=== PATIENT | male | born 1980 | race Caucasian/White ===

== ENCOUNTER 2024-03-13 14:30 | Emergency (ER) | payer BC, SELFPAY ==
[2024-03-13 14:42] VITALS: BP 160/89
--- NOTE | 2024-03-13 17:11 | ED.GENMED ---
History of Present Illness
General
Chief Complaint: Eye Problems
Source: patient
Time Seen by Provider: 03/13/24 16:37
History of Present Illness
History of Present Illness:
43-year-old male presents to the emergency room complaining of vision loss in his right eye. Symptoms began around 9 AM. Patient states he woke up this morning and his vision was perfectly fine. At about 9 or 930 he noticed a U-shaped area of
vision loss of the right eye. When he looks with 2 eyes he has blurred great vision on the right side. When he occludes his right eye his vision appears normal. When he occludes his left eye he notes a U-shaped area of his lateral visual field
which is absent. The remainder of the visual field is normal. Patient denies any pain in his right eye. He denies any headache. He further denies any chest pain or neck pain. Of note the patient has a history of a thoracic abdominal aneurysm.
He states it was diagnosed here about 2 years ago. He has had interval imaging at an outside institution which showed no growth of the aneurysm. Patient denies any other areas of weakness, numbness.
Past History
Past History
ED Past Medical History: None
ED Past Surgical History: Orthopedic
Phy Exam
Physical Exam
Physical Exam:
General: Awake, Alert, Oriented X3. No acute distress.
Vitals: unremarkable
Head: Atraumatic
Eyes: Pupils equal, EOMI, anterior chamber appears normal
Throat: Airway intact, no exudates
Neck: Trachea midline
Lungs: Clear and equal b/l
Heart: Regular rate, 2/6 systolic murmurs
Abd: Soft, Nontender, No pulsatile mass
Neuro: Cranial nerves intact, muscle strength equal bilaterally, cerebellar exam normal
Skin: Warm, dry, no rash
Extremities: pulses equal b/l, no edema
Course
Orders/Labs/Results
Orders:
Orders
03/13/24 14:47
CT Head W/o Iv Contrast Stat
Comment:
Reason For Exam: partial R eye blindness x 5 hours
03/13/24 17:02
Electrocardiogram (*1) Urgent
Reason for Study: TIA/Stroke
EKG- Treatment ONCE
03/13/24 17:09
CT Angio Neck W/Wo Iv Contrast [CT Neck Angio W/wo Iv Contrast] Urgent
Comment:
Reason For Exam: partial right retinal artery occlusion, hx of TAA
03/13/24 17:10
CT Chest Angio W/wo Iv Contras Urgent
Comment:
Reason For Exam: partial right retinal artery occlusion, hx of TAA
03/13/24 17:30
Basic Metabolic Panel Urgent
Complete Blood Count/With Diff Urgent
03/13/24 21:05
Aspirin Chewable [Low Strength Aspirin] 324 mg PO NOW STA
Abnormal Lab Results
03/13/24
17:30
Eosinophils % 8.7 H %
(0-6)
03/13/24 17:30
03/13/24 17:30
Vital Signs
Initial and Last Documented VS:
Initial Vital Signs
Temp Pulse Resp BP Pulse Ox
98.1 F 82 18 160/89 98
03/13/24 14:42 03/13/24 14:42 03/13/24 14:42 03/13/24 14:42 03/13/24 14:42
Last Documented Vital Signs
Temp Pulse Resp BP Pulse Ox
98.1 F 79 16 130/56 93
03/13/24 14:42 03/13/24 17:32 03/13/24 17:32 03/13/24 20:36 03/13/24 20:45
MDM/Problems Addressed
Differential Diagnosis Includes:
Branch retinal artery occlusion, retinal detachment, thoracic aortic dissection, symptomatic thoracic aortic aneurysm, intracranial mass
MDM/Problems Addressed:
Patient presents with partial visual field loss. Exam is otherwise negative. CT of the head shows no acute abnormalities. CT angiogram of the chest shows minimal to no change of the thoracic aneurysm. There is no evidence of dissection. CT
angio of the neck is essentially normal. Discussed patient's presentation with ophthalmology on-call. She raises the possibility of a retinal detachment also giving similar symptoms. Upon requestioning the patient denies any floaters or flashers.
However he does say he sometimes has ocular migraines. This certainly could be the cause for his symptomatology today. Because the patient has normal imaging and no other neurologic findings I do not believe the patient would benefit from
hospitalization but would rather benefit from ophthalmology follow-up tomorrow. Dr. Turner will have her office reach out to the patient in the morning for exact follow-up instructions
*Radiology
Radiology exam reviewed: radiology read reviewed
*Pulse Oximetry
Patient hypoxic: no
*EKG
Interpreted by ED Provider?: Yes
Heart Rate: 68
Rate: normal
Rhythm: sinus
QRS Pattern: normal QRS
Ischemia: no ischemia
*Glass Furnace Operator Interpretation
Rate: normal
Interpretation: normal
Rhythm: sinus
*Critical Care Note
Total Time (30-74mins, 75-104mins- exclusive of procedures): Not Applicable
ED Attending Note
-
Portions of this chart may have been created with voice recognition software.� Occasional wrong word or��sound alike� substitutions may have occurred due to the inherent limitations of voice recognition software.
Discharge Plan
Departure
Patient Disposition: Home (Routine Discharge)
Date of Disposition: 03/13/24
Time of Disposition: 21:03
Patient with high blood pressure during this ER visit?: No
Condition: Good
Discharge Problem:
Visual loss
Prescriptions:
No Action
amlodipine [Norvasc] 5 mg tablet
5 mg PO DAILY Qty: 30 0RF
Referrals:
Sadaf Turner MD [Active] -
NONE,* [Family Provider] -
Activity Restrictions/Additional Instructions:
You should receive a call from the Dr. Turner's office in the morning to arrange follow up with them sometime tomorrow. Also, call your night order selector first thing Saturday morning to arrange follow up and explain we recommend you have an
echocardiogram.
Interventions
Interventions:
*General Assessment Last Done: 03/13/24 17:23
*Neglect/Abuse Screening Last Done: 03/13/24 14:42
ED- Fall Risk Assessment Last Done: 03/13/24 17:45
*ED COVID-19 Vaccine History Last Done: 03/13/24 17:23
*Nursing Disposition Last Done: 03/13/24 21:29
Discharge Date and Time
Discharge Date/Time: 03/13/24 21:29
Print Language: TANZANIAN
[2024-03-13 17:22] VITALS: BMI 36.3
[2024-03-13 17:31] VITALS: BP 163/76
[2024-03-13 17:32] VITALS: BP 163/76
[2024-03-13 17:43] LABS: % Basophils 0.5 % (0-2); % Eosinophils 8.7 % (0-6); % Immature Granulocytes 0.2 % (0-0.5); % Lymphocytes 33.3 % (20.5-51.1); % Monocytes 7.2 % (1.7-9.3); % Neutrophils 50.1 % (42.2-75.2); Absolute Eosinophils 0.5 10^3/uL (0-0.7); Absolute Monocytes 0.4 10^3/uL (0.1-0.6); Absolute Neutrophils 2.9 10^3/uL (1.4-6.5); Hematocrit 41.6 % (39.0-52.0); Hemoglobin 14.8 g/dL (13.0-18.0); Mean Corp Hgb Conc. 35.6 g/dL (33.0-37.0); Mean Corpuscular Hgb 29.8 pg (27.0-31.0); Mean Corpuscular Volume 83.9 fL (80.0-94.0); Mean Platelet Volume 9.9 fL (7.4-10.4); Nucleated Red Blood Cells % 0 % (-); Platelet Count 210 10^3/uL (130-400); Red Blood Cell Count 4.96 10^6/uL (4.70-6.10); Red Cell Dist. Width 12.5 % (11.5-14.5); White Blood Cell Count 5.9 10^3/uL (4.8-10.8)
[2024-03-13 17:57] LABS: Blood Urea Nitrogen 17 mg/dl (9-20); Calcium 9.7 mg/dl (8.4-10.2); Carbon Dioxide 28 mmol/L (22-30); Chloride 102 mmol/L (98-107); Estimated Creatinine Clearance 90 ml/min; Glucose 97 mg/dl (70-99); Potassium 4.1 mmol/L (3.5-5.1); Sodium 141 mmol/L (135-145); eGFR > 60.00
[2024-03-13 20:36] VITALS: BP 130/56
[2024-03-13] MEDS: LOW STRENGTH ASPIRIN 324 MG PO (21:14)
== END 2024-03-13 21:29 | disposition home or self-care (01) ==
LOC: EMR 14:30
PROVIDERS: EMERGENCY PHYSICIAN Emergency Medicine
DX: H54.61 Unqualified visual loss, right eye, normal vision left eye (principal); I71.20 Thoracic aortic aneurysm, without rupture, unspecified
CPT/HCPCS: 99285; 70450; 70498; 71275; 80048; 85025; 93005; Q9967

== ENCOUNTER 2024-03-14 16:00 | Inpatient (IN) | payer BC, SELFPAY ==
[2024-03-14] VITALS (11 sets, daily range): BP systolic 121–156; BP diastolic 71–92; BMI 32.5; BMI 34.8
--- NOTE | 2024-03-14 11:32 | EDRN ---
Pt states he sees sparks in perphery of R eye visual field and sees a little bit in lower L corner. 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 Pt was seen
in ER and pt was discharged to follow up w/ophthmoloist Dr. Neftaly Rivers referred to Dr. Butts's practice. Pt was advised to return to ER for more blood work.
[2024-03-14 12:48] LABS: HDL Cholesterol 44 mg/dl; LDL Cholesterol, Calculated 116 mg/dl; Total Cholesterol 210 mg/dl (50-199); Triglyceride 254 mg/dl (10-149); Very Low Density Lipoprotein 50 mg/dl (0-30)
[2024-03-14 12:49] LABS: C-Reactive Protein < 5.00 mg/L (0.0-10.00); INR 1.03; PT 13.3 Sec (11.4-14.6)
[2024-03-14 12:50] LABS: APTT 30.7 Sec (23.4-35.0)
[2024-03-14 13:09] LABS: Erythrocyte Sed Rate 9 mm/hour (0-20)
--- NOTE | 2024-03-14 14:03 | ED.GENMED ---
History of Present Illness
General
Chief Complaint: Eye Problems
Source: patient and spouse
Time Seen by Provider: 03/14/24 11:41
History of Present Illness
History of Present Illness:
43-year-old male who presents back from ophthalmology. Patient was seen here in emergency department due to vision loss. Seen by ophthalmology who sent him back for further workup. They did diagnose a retinal branch occlusion. The patient states
his symptoms have not changed. No headache. No motor weakness.
Past History
Past History
ED Past Medical History: Other (Ocular migraines, thoracic aneurysm)
ED Past Surgical History: Orthopedic
Phy Exam
Physical Exam
Physical Exam:
CONSTITUTIONAL Patient alert and oriented to person, place and time. Well-appearing. Vital signs reviewed.
HEAD atraumatic, normocephalic.
EYES eyelids normal to inspection, Pupils equally round and reactive to light, Extraocular muscles intact, Conjunctiva normal, Sclera normal.
NECK normal range of motion, Trachea midline, no jugular venous distention.
RESPIRATORY CHEST No respiratory distress noted, Chest expansion equal,
ABDOMEN abdomen nontender, Bowel sounds normal. No distention.
BACK normal inspection, no obvious deformities
UPPER EXTREMITY range of motion normal, Motor strength normal, no cyanosis, no edema.
LOWER EXTREMITY range of motion normal, Motor strength normal, no cyanosis, no edema.
NEURO Speech normal, No focal motor deficits, [place] coma scale 15, Memory normal, Cranial Nerves intact to screening exam.
SKIN skin warm, dry, and normal in color.
PSYCHIATRIC patient oriented to person place and time, Normal affect.
Course
Orders/Labs/Results
Orders:
Orders
03/14/24 Lunch
Cholesterol Lowering
At Your Request: Full Participation
Cholesterol Lowering: Sodium, 2 Gram
03/14/24 12:20
DACIA, IgG Reflex to HEp-2 [S] Urgent
C-Reactive Protein Urgent
Cardiovascular Evaluation Urgent
Erythrocyte Sed Rate Urgent
FTA-ABS/T. pallidum, IgG Serum [S] Urgent
PTT Urgent
Prothrombin Time Urgent
Rheumatoid Agglutinin Urgent
03/14/24 14:26
Aspirin Chewable [Low Strength Aspirin] 81 mg PO NOW STA
03/14/24 15:20
Admit/Transfer Patient As Directed
Co-Sign Provider:
Level of Care: Inpatient admission
Assign to:: Telemetry
Physician / Group: Dr. Cleve Gonzalez
Diagnosis: Right Retinal Artery Occlusion
Reason for Telemetry: Arrhythmia
Date to Stop Telemetry: 03/17/24
Time to Stop Telemetry: 11:00
Reason for Hospitalization: Right Retinal Artery Occlusion
Expected length of stay greater than two midnights?: Yes
ELOS- Estimated Length of Stay in days: 3
I certify the patient meets the requirements for IP care: Yes
PRN Pain Medication Management As Directed
May give lesser potent ordered pain med per pt: Yes
preference::
Protocol:: Medication orders for pain may be administered in a
manner that supports deferring to patient preference
when the pt is:
- Requesting an ordered lesser potent pain medication.
Least to most potent pain medications are defined
as: acetaminophen < NSAID < tramadol < opioids
(morphine, oxycodone, hydromorphone).
- Requesting a lesser dose of the same medication IF
ORDERED.
- Requesting a less intrusive route of administration
if both routes are prescribed by the provider (PO <
IV).
03/14/24 15:22
Code Status As Directed
Resuscitation Status: Full Code
03/14/24 15:30
Basic Metabolic Panel Urgent
03/14/24 18:05
Atorvastatin [Lipitor] 40 mg PO QPM
Bisacodyl [Dulcolax] 10 mg RECTAL [id number] PRN
Docusate W/Senna [Senokot-S] 1 tablet PO BIDPRN PRN
Polyethylene Glycol Powder [Miralax] 17 grams PO DAILYPRN PRN
03/14/24 18:05
Echo W Saline (bubble) Routine
Reason for Study: retinal art clot
CARDIOLOGY CONSULT Routine
Consulting Provider: David Aguirre
Was physician already notified: Yes
Reason for consult: possible cardioembolic disease
Activity As Directed
Activity Level: As Tolerated
Neurological Checks As Directed
Frequency: q8h
Pneumatic Compression Sleeves As Directed
Type: Knee high
Vital Signs As Directed
Frequency: Per unit guidelines
DX Deep Vein Thrombosis Video Routine
03/14/24 20:00
Acetaminophen [Tylenol] 650 mg PO Q4HWA
03/15/24 06:59
Antiphospholipid Antibody [Phospholipid Antibody Panel] IN AM
BMP [Basic Metabolic Panel] IN AM
Hemoglobin A1c [Glycohemoglobin (HgbA1c)] IN AM
03/15/24 08:00
Aspirin Chewable [Low Strength Aspirin] 81 mg PO DAILY
03/16/24 06:00
BMP [Basic Metabolic Panel] IN AM
03/17/24 06:00
BMP [Basic Metabolic Panel] IN AM
03/17/24 11:00
DC Protocol for Telemetry ONCE
Abnormal Lab Results
03/14/24 03/14/24
12:20 15:30
Glucose 103 H mg/dl
(70-99)
Triglycerides 254 H mg/dl
(10-149)
Total Cholesterol 210 H mg/dl
(50-199)
VLDL Cholesterol, Calc 50 H mg/dl
(0-30)
03/14/24 15:30
Vital Signs
Initial and Last Documented VS:
Initial Vital Signs
Temp Pulse Resp BP Pulse Ox
98 F 95 16 156/92 98
03/14/24 11:09 03/14/24 11:09 03/14/24 11:09 03/14/24 11:09 03/14/24 11:09
Last Documented Vital Signs
Temp Pulse Resp BP Pulse Ox
98.2 F 74 18 106/52 94
03/15/24 19:55 03/15/24 19:55 03/15/24 19:55 03/15/24 19:55 03/15/24 19:55
MDM/Problems Addressed
MDM/Problems Addressed:
Visual field loss, arterial retinal branch occlusion
*Pulse Oximetry
Patient hypoxic: no
*Catering Convention Services Manager Interpretation
Rate: normal
Interpretation: normal
Rhythm: sinus
*Critical Care Note
Total Time (30-74mins, 75-104mins- exclusive of procedures): Not Applicable
Data Reviewed
Review of Other/Old Records Reveals: Labs and Radiology Studies
Source: patient and spouse
Patient Management
Discussion with other providers: Hospitalist
Escalation/DeEscalation of care consider admission/obs:
43-year-old male presents with visual field loss. Given the unknown known etiology, admit for MRI and possible echo to look for source of emboli. Recent CT reviewed showing no dissection
ED Attending Note
-
Portions of this chart may have been created with voice recognition software.� Occasional wrong word or��sound alike� substitutions may have occurred due to the inherent limitations of voice recognition software.
Discharge Plan
Departure
Patient Disposition: Admit
Date of Disposition: 03/14/24
Time of Disposition: 14:03
Admit to: Telemetry
Presentation/result/management discussed w/ accepting MD/DO: Hospitalist
Discharge Problem:
Arterial retinal branch occlusion
Interventions
Interventions:
*Risk Screen - Suicide Last Done: 03/14/24 11:09
*General Assessment Last Done: 03/14/24 11:30
*Neglect/Abuse Screening Last Done: 03/14/24 11:09
ED- Fall Risk Assessment Last Done: 03/14/24 11:31
*ED COVID-19 Vaccine History Last Done: 03/14/24 11:30
*Nursing Disposition Last Done: 03/14/24 17:57
Discharge Date and Time
Discharge Date/Time: 03/14/24 17:57
--- NOTE | 2024-03-14 14:32 | EDRN ---
Pt states the L side of his face is feeling different, feeling numb + tingly and also feeling hot and sweaty from anxiousness due to admission here. pt also having pain in L mosque area 3/10 described as pressure.
[2024-03-14] MEDS: LOW STRENGTH ASPIRIN 81 MG PO (14:40)
--- NOTE | 2024-03-14 14:45 | EDRN ---
Dr. Richards (hospitalist resident) in to see pt.
--- NOTE | 2024-03-14 15:33 | EDRN ---
BMP was deemed hemolyzed by lab and just redrawn and sent new tube for ordered BMP labwork at this time.
--- NOTE | 2024-03-14 15:51 | W.PN.UPDATE ---
Update Note
Progress Note Update
I personally performed a history and physical exam of the patient and discussed management with the resident. I reviewed the resident's note and agree with the documented findings and plan of care HPI/CC.
Patient is a 43-year-old male with past medical history of former smoker, hypertension?, Optimized was sent from ophthalmology office after being diagnosed for right eye branch retinal artery occlusion. Patient noticed to have new horseshoe
scotoma involving temporal visual field and sparing central vision yesterday. Patient does have history of ocular migraine where patient have some floaters/flash and blotchy dark spots followed by some headache which usually resolves. Patient
initially thought this was the case although vision changes did not improve and patient did not have any significant headache and thus came to the ER. In ER patient had CTA chest which showed ascending thoracic aortic aneurysm of 4.7 cm, CTA neck
was showing clean ICA. Patient was sent to ophthalmology office for follow-up with her in office patient was diagnosed to have branch retinal artery occlusion. Patient was recommended to come back to ER for further evaluation for possible
cardioembolism.
Patient denies of having any previous history of VTE, no family history of hypercoagulable disorder/blood clot. Patient has stopped smoking for many years now.
Patient denies episodes of palpitations/chest discomfort/dizziness/syncope. No reported other cardiac issues.
HEENT: No pallor, cyanosis, or jaundice. Throat clear.
NECK: Supple. No JVD.
RESPIRATORY: Lungs clear to auscultation.
CVS: S1, S2 normal. RRR. No murmur, rub or gallop.
ABDOMEN: Soft, non-tender. No distension. BS+/normal.
EXTREMITIES: No peripheral cyanosis or edema.
MACHINE HEEL BUILDER: AOx3. No focal deficits.
CTA neck 03/13
No significant narrowing involving the common carotid, carotid bulbs, or proximal internal carotid arteries bilaterally.
Dominant right vertebral artery with small caliber left vertebral artery. The left vertebral artery terminates as the posterior inferior cerebellar artery.
No evidence for dissection.
CT chest 03/[address] angiographic evidence for thoracic aortic dissection.
Dilation of the ascending aorta, short axis diameter 4.7 cm at the level of the right main pulmonary artery. Continued follow-up is recommended.
There is mild to moderate calcification of the aortic valve. Combined with dilation of the aorta, findings raise concern for bicuspid aortic valve. On reconstructions, valvular calcification is mainly at the junction of the left and right coronary
leaflets, which raises concern for Aries type I bicuspid valve. If not previously evaluated, consider consultation with cardiology.
Mild calcification of the LAD. Please correlate with symptoms of and risk factors for coronary artery disease, with further workup as clinically appropriate.
The lungs appear clear. Fatty infiltration of the visualized liver.
Right eye - branch retinal artery occlusion
- Right eye temporal horse shoe shaped vision loss spraing central vision
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
- CTA neck clear - done in ER yesterday
- Have h/o of ocular migraine - ESR normal - low chance temporal arteritis
- Syphilis ab/RA pending
- TTE with bubble study ordered
- Check anti-phospholipid ab panel. full hypercoagulability workup in hematology office will be required
- Cardio evaluation requested , will help with OP rhythm monitoring
- Start on ASA 81mg/d for now. Per literature review no benefit of anticoagulation was found to have underlying A-fib or other hypercoagulable disorder.
HLD
- TC 210 LDL 116
- Start on Atorvastatin 40mg/qpm
Thoracic art aneurysm
Former smoker
- CT chest report as above
- Will require periodic surveillance with cardiology in office
HTN
- unconfirmed
- maintain on nrovasc
Full code
SCD
Outpatient optometry/ophthalmology recommendations reviewed - see ' emergency department scanned ''
Total time spent : 83 mins
I personally saw and examined the patient.
I have reviewed all diagnostic interpretations and treatment plans as written.
Time includes patient management by me, time spent at the patients bedside, time to review lab and imaging results, discussing patient care, documentation in the medical record, and time spent with the family or caregiver and discussing care plan
with RN/Consultants.
--- NOTE | 2024-03-14 15:56 | HPS.HSE ---
Addendum entered and electronically signed by Cleve Gonzalez MD 03/15/24 14:04:
I personally performed a history and physical exam of the patient and discussed management with the resident. I reviewed the resident's note and agree with the documented findings and plan of care HPI/CC.
Original Note:
Family Physician
-
Family Physician: Carlo Hines
Chief Complaint
-
Sudden Vision Lost on the Right Eye
History of Present Illness
The patient is a 43 year old male with a PMH of aortic aneurysm and ocular migraine presented to ER 2 days ago on 03/13 complaining from sudden loose of her right vision partially. The case was discussed with ophthalmology at that time by ER
physician and He was obtained Ct head, CT chest/ neck angio studies. Head CT and CT Neck Angio results were unremarkable and CT Chest Angio showed: Dilation of the ascending aorta and Mild calcification of the LAD. He was discharged on 03/13
afternoon. The patient presented to ER again on 03/15 after he was seen by his eye physician. He was found having Branch Retinal Artery Occlusion and recommended further studies. The patient was admitted for further evaluation.
Medical History
Past Medical History
Past Medical History: Reports Other (Aortic aneurysm, ocular migraine )
Past Surgical History: Reports Other (right shoulder surgery )
Social History
Tobacco: Smoker (stopped smoking 10 years ago )
Alcohol: None
Drug: None
Living: With Family
Employment: Employed
Family History
Family History: Not pertinent
Allergies / Home Medications
Allergies reflects when Allergies were last updated in [facility].
Home Medications with original date entered in [facility]
Allergy/Medication List:
Allergies
Allergy/AdvReac Type Severity Reaction Status Date / Time
No Known Allergies Allergy Verified 03/14/24 11:09
Home Medications
amlodipine 5 mg tablet (Norvasc) 5 mg PO DAILY #30 tabs 06/10/22
Patient denies taking amlodipine on a regular basis
Review of Systems
-
History Source: Patient
EENT: Reports Other (See HPI )
Respiratory: Reports No Symptoms
Cardiac: Reports No Symptoms
Abdomen/GI: Reports No Symptoms
: Reports No Symptoms
Musculoskeletal: Reports No Symptoms
Skin: Reports No Symptoms
Neurological: Reports Other (See HPI )
Endocrine: Reports No Symptoms
Physical Exam
Vital Signs
Vital Signs
Temp Pulse Resp BP Pulse Ox
98 F 78 16 139/83 96
03/14/24 11:09 03/14/24 15:16 03/14/24 15:16 03/14/24 15:16 03/14/24 15:16
Physical Exam
General: Well Developed, Well Nourished and No Apparent Distress
HEENT: NormoCephalic, Anicteric and Other (right eye U shaped vision loss, Left side facial numbness )
Respiratory: Clear
Cardiac: S1/S2 and Regular Rhythm
GI: Soft and Non Tender
Genito-urinary: Deferred by me
Musculoskeletal: No Clubbing and No Cyanosis
Skin: Warm
Neuro: Awake, Alert, Oriented, AO x 3 and Nonfocal/grossly intact
Psych: Calm
Laboratory Results
-
Laboratory Results
PT 13.3 Sec (11.4-14.6) 03/14/24 12:20
INR 1.03 03/14/24 12:20
APTT 30.7 Sec (23.4-35.0) 03/14/24 12:20
Impression/Plan
-
IMPRESSION:The patient is a 43 year old male with a PMH of aortic aneurysm and ocular migraine presented to ER 2 days ago complaining from sudden loose of her right vision partially. The case was discussed with ophthalmology then and He was
obtained Ct head, CT chest/ neck angio studies. Head CT and CT Neck Angio results were unremarkable. CT Chest Angio showed: Dilation of the ascending aorta, short axis diameter 4.7 cm at the level of the right main pulmonary artery and Mild
calcification of the LAD. He was discharged yesterday and presented to ER again today after he was seen by his eye physician. The patient reported his vision loss did not get worse or improve since yesterday, but he started to feel numbness on his
left side of face. The patient was admitted for further evaluation.
Assessment /Plan
#Right Eye Sudden Vision Lost
- He was seen by Dr Neftaly Rivers at [facility]
-Was ordered further studies to understand etiology (DACIA, FTA-ABS/T Palladium Ig G, Antiphospholipid antibody panel)
-Cardiology was consulted due possible cardioembolic reason
-Telemetry was ordered
-MRA brain was ordered
-Diagnosed with Branch Retinal Artery Occlusion
-Denies prior similar episode, denies any chronic disease
# Left fascial numbness
-Reported having numbness feeling on the left side of the face
-No fascial asymetria
-MRA brain was ordered
#HL
-T, TC: 210 , LDL: 116
-Rosuvastatin was started
#Possible Essential HT
-Denies prior hx of HT
-Monitor BP
[2024-03-14 16:01] LABS: Blood Urea Nitrogen 16 mg/dl (9-20); Carbon Dioxide 25 mmol/L (22-30); Chloride 102 mmol/L (98-107); Estimated Creatinine Clearance 93 ml/min; Glucose 103 mg/dl (70-99); Potassium 3.7 mmol/L (3.5-5.1); Sodium 141 mmol/L (135-145); eGFR > 60.00
[2024-03-14 16:13] LABS: Calcium 9.5 mg/dl (8.4-10.2)
--- NOTE | 2024-03-14 16:27 | EDRN ---
Floor has placed pt on hold for room issues at this time and will call when pt can go up to room.
--- NOTE | 2024-03-14 17:51 | EDRN ---
Pt can now go up to admission bed at this time.
--- NOTE | 2024-03-14 19:19 | PTCARENOTE ---
pt arrived at 18:05 via stretcher from ED with at bedside. pt ambulated from hallway to bed w/out assist. admissions and assessment completed by this nurse. pt and oriented to unit. Neuro check complete. VSS. pt on tele #10 running NSR. pt
notes R eye 'u' shaped partial blindness. pupil reaction to light, R pupil dilates prior to constriction, L eye WNL.
[2024-03-14] MEDS: NORVASC 5 MG PO (20:10)
[2024-03-14] MEDS: LIPITOR 40 MG PO (20:11)
[2024-03-14] MEDS: TYLENOL PO (20:16)
[2024-03-15] VITALS (8 sets, daily range): BP systolic 102–125; BP diastolic 52–72
[2024-03-15] MEDS: TYLENOL PO ×4 (00:40→15:57)
[2024-03-15] MEDS: TYLENOL 650 MG PO ×2 (00:56→08:20)
--- NOTE | 2024-03-15 01:00 | PTCARENOTE ---
Received patient from via wheelchair. Patient ambulated from wheelchair to bed independently. Scheduled tylenol given for FOX. Oriented patient to room and placed call cruz within reach.
--- NOTE | 2024-03-15 07:09 | W.PN.HOSP.TC ---
Today's Communication/Plan
-
-Cardio cons
Assessment / Plan
Assessment / Plan
Impression: The patient is a 43 year old male with a PMH of aortic aneurysm and ocular migraine presented to ER 3 days ago on 03/13 complaining from sudden loose of her right vision partially. The case was discussed with ophthalmology at that
time by ER physician and He was obtained Ct head, CT chest/ neck angio studies. Head CT and CT Neck Angio results were unremarkable and CT Chest Angio showed: Dilation of the ascending aorta and Mild calcification of the LAD. He was
discharged on 03/13 afternoon. The patient presented to ER again on 03/15 after he was seen by his eye physician. He was found having Branch Retinal Artery Occlusion and recommended further studies. Due having numbness on his left side of the
face, brain MRI was ordered which showed: No acute intracranial abnormality. Additionally, cardiology was consulted for a possible cardioembolic event.
Assessment /Plan
#Right Eye Sudden Vision Lost
- This morning reports no progress or no worsening with his vision loss
- He was seen by Dr Neftaly Rivers at [facility] on 03/15
-Diagnosed with Branch Retinal Artery Occlusion
-Was ordered further studies to understand etiology (DACIA, FTA-ABS/T Palladium Ig G, Antiphospholipid antibody panel)
-Cardiology was consulted due possible cardioembolic reason
-Telemetry was ordered
-MRA brain was ordered: No embolic event/ No acute intracranial abnormality.
-Denies prior similar episode, denies any chronic disease
# Left fascial numbness
-Reported having numbness feeling on the left side of the face yesterday
-This morning reports that numbness resolved and denied any further symtoms
-No fascial asymetria
-MRA brain was ordered: No acute intracranial abnormality.
#HL
-T, TC: 210 , LDL: 116
-Continue Rosuvastatin
#Possible Essential HT
-Denies prior hx of HT
-Monitor BP
Anticipated Discharge: 24 - 48 hours
Subjective/Interval History
-
Date of Service: March 15, 2024
The patient reports no improvement or progress regarding her vision lost in the right eye. He reported his left side numbness resolved and he denied any new symptoms like dizziness, weakness, difficulty with swallowing/talking/memory.
Objective Data
-
Labs:
Laboratory Results
03/15/24
06:59
WBC Pending
Hgb Pending
Hct Pending
Plt Count Pending
Sodium Pending
Potassium Pending
Chloride Pending
Carbon Dioxide Pending
BUN Pending
Creatinine Pending
Glucose Pending
Calcium Pending
Vital Signs:
Vital Signs
Temp Pulse Resp BP Pulse Ox
97.9 F 76 16 116/54 95
03/15/24 03:13 03/15/24 03:13 03/15/24 03:13 03/15/24 03:13 03/15/24 03:13
I&O
03/14/24 03/15/24 03/16/24
06:59 06:59 06:59
Intake Total 360 / 360
Balance 360 / 360
Review of Systems
-
EENT: Reports No Symptoms Reported and Other (See HPI )
Respiratory: Reports No Symptoms
Cardiac: Reports No Symptoms
Abdomen/GI: Reports No Symptoms
Genitourinary: Reports No Symptoms
Musculoskeletal: Reports No Symptoms
Skin: Reports No Symptoms
Neuro: Reports No Symptoms
Physical Exam
-
General: Well Developed and Well Nourished
HEENT: Normocephalic and Atraumatic
Respiratory: Clear to Auscultation
Cardiac: Regular Rhythm and S1/S2
GI: Soft and Nontender
Musculoskeletal: No Clubbing and No Cyanosis
Skin: Warm
Neuro: Awake, Alert, Oriented, AO x 3 and No Motor Deficits
Psych: Calm
[2024-03-15 07:51] LABS: % Basophils 0.4 % (0-2); % Eosinophils 7.4 % (0-6); % Immature Granulocytes 0.2 % (0-0.5); % Lymphocytes 29.7 % (20.5-51.1); % Monocytes 8.5 % (1.7-9.3); % Neutrophils 53.8 % (42.2-75.2); Absolute Eosinophils 0.4 10^3/uL (0-0.7); Absolute Lymphocytes 1.6 10^3/uL (1.2-3.4); Absolute Monocytes 0.5 10^3/uL (0.1-0.6); Hematocrit 41.7 % (39.0-52.0); Hemoglobin 14.7 g/dL (13.0-18.0); Mean Corp Hgb Conc. 35.3 g/dL (33.0-37.0); Mean Corpuscular Hgb 29.8 pg (27.0-31.0); Mean Corpuscular Volume 84.6 fL (80.0-94.0); Mean Platelet Volume 9.9 fL (7.4-10.4); Nucleated Red Blood Cells % 0 % (-); Platelet Count 196 10^3/uL (130-400); Red Blood Cell Count 4.93 10^6/uL (4.70-6.10); Red Cell Dist. Width 12.5 % (11.5-14.5); White Blood Cell Count 5.5 10^3/uL (4.8-10.8)
[2024-03-15] MEDS: NORVASC 5 MG PO (08:20)
[2024-03-15] MEDS: LOW STRENGTH ASPIRIN 81 MG PO (08:20)
[2024-03-15 08:21] LABS: Blood Urea Nitrogen 21 mg/dl (9-20); Calcium 9.4 mg/dl (8.4-10.2); Carbon Dioxide 28 mmol/L (22-30); Chloride 102 mmol/L (98-107); Estimated Creatinine Clearance 88 ml/min; Glucose 94 mg/dl (70-99); Potassium 4.1 mmol/L (3.5-5.1); Sodium 140 mmol/L (135-145); eGFR > 60.00
--- NOTE | 2024-03-15 12:20 | CM ---
CM following re: discharge planning.
Reviewed pt's chart, met with pt.
Pt is a 43 year old male, admitted with primary dx of Sudden Vision Lost on the Right Eye. MRI today.
Pt reports he lives with spouse 2SH, 2 steps to enter, has 3 supportive children. Pt described himself as independent in all areas [employer], drives, works
PCP: Cralo Hines
Pharmacy: [facility]
D/c plan: home with anticipated no needs.
CM will follow with discharge plan updates as hospitalization progresses
[2024-03-15 12:58] LABS: Glycohemoglobin (HgbA1c) 5.4 % (4.0-5.6)
--- NOTE | 2024-03-15 13:59 | W.PN.UPDATE ---
Update Note
Progress Note Update
I saw and evaluated the patient. I reviewed the resident�s note and agree with findings and plan as documented in the resident�s note.
CTA neck 03/13
No significant narrowing involving the common carotid, carotid bulbs, or proximal internal carotid arteries bilaterally.
Dominant right vertebral artery with small caliber left vertebral artery. The left vertebral artery terminates as the posterior inferior cerebellar artery.
No evidence for dissection.
CT chest 03/[address] angiographic evidence for thoracic aortic dissection.
Dilation of the ascending aorta, short axis diameter 4.7 cm at the level of the right main pulmonary artery. Continued follow-up is recommended.
There is mild to moderate calcification of the aortic valve. Combined with dilation of the aorta, findings raise concern for bicuspid aortic valve. On reconstructions, valvular calcification is mainly at the junction of the left and right coronary
leaflets, which raises concern for Aries type I bicuspid valve. If not previously evaluated, consider consultation with cardiology.
Mild calcification of the LAD. Please correlate with symptoms of and risk factors for coronary artery disease, with further workup as clinically appropriate.
The lungs appear clear. Fatty infiltration of the visualized liver.
Right eye - branch retinal artery occlusion
- Right eye temporal horse shoe shaped vision loss spraing central vision
- Backend Developer diagnosed BRAO in office
- CTA neck clear - done in ER on Saturday
- Have h/o of ocular migraine - ESR normal - low chance temporal arteritis
- Syphilis ab/RA pending
- Check anti-phospholipid ab panel. full hypercoagulability workup in hematology office will be required
- Start on ASA 81mg/d for now. Per literature review no benefit of anticoagulation was found to have underlying A-fib or other hypercoagulable disorder.
- Discussed with cardiology and possibly planning to do STEPHANE on Saturday, will cancel TTE
- Continue monitoring on Telemetry
HLD
- TC 210 LDL 116
- Start on Atorvastatin 40mg/qpm
Thoracic art aneurysm
Former smoker
- CT chest report as above
- Will require periodic surveillance with cardiology in office
HTN
- unconfirmed
- maintain on nrovasc
Full code
SCD
--- NOTE | 2024-03-15 15:52 | CON.CAR ---
Consultation
Consultation Request
Date/Time Consultation Requested: 03/14/24, 3pm
Date/Time Consultation Performed: 03/15/24, 3pm
Requesting Provider: Carlos
Performing Provider: Carla
Reason for Consultation: retinal artery occlusion
Medical History
-
Chief Complaint: right vision loss
History of Present Illness:
43 yo male with PMH of ascending aorta aneurysm, hyperlipidemia, former tobacco, obesity admitted with right sided vision loss. Found to have branch retinal artery occlusion (right). We are consulted to evaluate for cardiac source of embolus.
He denies cardiac sxs such as chest pain, SOB, palps, edema, dizziness, syncope.
Past Medical History
Past Medical History: HTN (new), Hypercholesterolemia and Other (obesity)
Past Surgical History: Orthopedic
Social History
Tobacco: Former Smoker
Family History
Family History: CAD (none)
Allergies / Home Medications
Allergy/AdvReac Type Severity Reaction Status Date / Time
No Known Allergies Allergy Verified 03/14/24 11:09
�Medication �Instructions �Recorded �Confirmed �Type
amlodipine 5 mg tablet (Norvasc) 5 mg PO DAILY #30 tabs 06/10/22 Rx
Review of Systems
-
History Source: Patient and Family
All other systems: Negative unless noted
Neurological: Other (right eye vision loss)
Physical Exam
Vital Signs
Temp Pulse Resp BP Pulse Ox
98.5 F 78 18 102/52 98
03/15/24 15:09 03/15/24 15:09 03/15/24 15:09 03/15/24 15:09 03/15/24 15:09
Lab Results
03/15/24 06:59
03/15/24 06:59
Physical Exam
General: Well Developed and Well Nourished
HEENT: Normocephalic and Anicteric
Respiratory: Clear and Non Labored Respirations
Cardiac: S1/S2 (normal), Regular Rhythm, Murmur (none) and JVD (none)
Musculoskeletal: No Clubbing, No Cyanosis and No Edema
Skin: Warm and Dry
Neuro: AO x 3
Psych: Calm
Impression / Plan
-
43 yo male with PMH of ascending aorta aneurysm, hyperlipidemia, former tobacco, obesity admitted with right sided vision loss. Found to have branch retinal artery occlusion (right). We are consulted to evaluate for cardiac source of embolus.
Cards: [facility], Dr. Santana
#Branch retinal artery occlusion (right)
-CTA neck: no carotid disease
-brain MRI: no acute findings
-Tele: no A fib
-Hypercoag eval: sent
-we will proceed with STEPHANE in AM, and ILR if no abnormality detected on STEPHANE
-we discussed topics of BRYAN thrombus and PFO, as well as A fib
-he wlll remain on ASA 81mg daily for now
# Asc Ao aneurysm (4.7cm) with suspected bicuspid aortic valve on CT
-will evaluate aortic valve during STEPHANE
-new HTN: will use losartan and Toprol XL
# HTN
-change amlodipine to losartan and Toprol given aortic findings
# Lipid management
-mild LAD calcification also noted on CT
-atorvastatin 40mg started
# Abnormal EKG
-IVCD, LVH
Data Reviewed
-
EKG: Tracing Personally Visualized and interpreted (NSR, LVH, IVCD) and Other (Tele: NSR, no A fib)
Medical Tests (Nuc Med, Echo etc): Report Reviewed by me (brain MRI, CTA summarized in note)
Labs: Labs Reviewed by me
Old Records: Reviewed
[2024-03-15] MEDS: LIPITOR 40 MG PO (17:28)
[2024-03-16 03:35] VITALS: BP 109/52
--- NOTE | 2024-03-16 07:54 | W.PN.HOSP.TC ---
Addendum entered and electronically signed by Nicholas Arredondo MD 03/16/24 17:27:
43-year-old male with retinal artery branch occlusion
I personally performed a history and physical exam of the patient and discussed management with the resident. I reviewed the resident's note and agree with the documented findings and plan of care HPI/CC except for changes in my documentation
TTE-normal LV size and systolic function. Mild to moderate LVH with mild asymmetry involving the subaortic septum 1.4 cm. Normal RV size and systolic function. Normal atrial dimensions. No left atrial appendage thrombus. Interatrial septum is
intact with bubble study. Bicuspid sclerotic aortic valve without stenosis. Moderate eccentric aortic regurgitation. Thickened mitral valve leaflets without stenosis. Trace MR. Trace TR. No evidence of pulmonary hypertension. Dilated aortic
root with proximal ascending aorta. Plaque noted in the descending aorta.
Right visual field loss
CVS No Mr
# Right retinal artery branch occlusion
CTA of the neck no carotid disease. Brain MRI with no stroke, telemetry with no A-fib
STEPHANE no BRYAN thrombus.
Linq 2 placed
Continue aspirin
Hypercoagulable workup panel sent-pending
OT evaluation- noted. Needs Op OT clearence for discharge
Neuro eval.
# Mild creatinine elevation-stable GFR stable but needs repeat labs as outpatient if discharged today.
# Ascending aortic aneurysm 4.7 cm with bicuspid aortic valve-May need MRI or CT as outpatient per STEPHANE report. Follow with Op Cards
# Hypertension-continue amlodipine, metoprolol and losartan
# Hyperlipidemia-continue atorvastatin
# LVH on EKG
# Migraines
# Ex-smoker
# DVT prophylaxis-SCDs
# Full code
Discussed with family at bedside
Original Note:
Today's Communication/Plan
-
-Discuss discharge plan with cardiology
-Follow up with cardiology after discharge
Assessment / Plan
Assessment / Plan
Impression: The patient is a 43 year old male with a PMH of aortic aneurysm and ocular migraine presented to ER 3 days ago on 03/13 complaining from sudden loose of her right vision partially. The case was discussed with ophthalmology at that
time by ER physician and He was obtained Ct head, CT chest/ neck angio studies. Head CT and CT Neck Angio results were unremarkable and CT Chest Angio showed: Dilation of the ascending aorta and Mild calcification of the LAD. He was
discharged on 03/13 afternoon. The patient presented to ER again on 03/15 after he was seen by his eye physician. He was found having Branch Retinal Artery Occlusion and recommended further studies. Due having numbness on his left side of the
face, brain MRI was ordered which showed: No acute intracranial abnormality. Additionally, cardiology was consulted for a possible cardioembolic event.
Assessment /Plan
#Right Eye Sudden Vision Lost
- This morning reports no progress or no worsening with his vision loss
- He was seen by Dr Neftaly Rivers at [facility] on 03/15
-Diagnosed with Branch Retinal Artery Occlusion
-Was ordered further studies to understand etiology (DACIA, FTA-ABS/T Palladium Ig G, Antiphospholipid antibody panel)
-Cardiology was consulted due possible cardioembolic reason: STEPHANE: Bicuspid, sclerotic aortic valve without significant stenosis. Moderate
eccentric aortic regurgitation ( Interatrial septum intact, No left atrial appendage thrombus)
-Telemetry: No A-fib. will follow up with Dr. Santana in their device clinic
-Hypercoag eval: sent/pending
-MRA brain was ordered: No embolic event/ No acute intracranial abnormality.
-Denies prior similar episode, denies any chronic disease
-ASA 81 mg by cardio rec
# Left fascial numbness
-Reported having numbness feeling on the left side of the face when admitted
-Reports that numbness resolved after admission and denied any further symptoms
-No fascial asymetria
-MRA brain was ordered: No acute intracranial abnormality.
# Asc Ao aneurysm (4.7cm) with suspected bicuspid aortic valve on CT
-Aortic valve is bicuspid noted on STEPHANE
-Follow up with cardiology
#HL
-T, TC: 210 , LDL: 116
-Atorvastatine
#Possible Essential HT
-Denies prior hx of HT
-HTN: will use losartan and Toprol XL by cardio rec
-Monitor BP
Anticipated Discharge: 24 - 48 hours
Subjective/Interval History
-
Date of Service: March 16, 2024
The patient reported his vision loss on his right eye is still same. He denied worsening or improving with his vision. He denied any headache, weakness, numbness or new symptoms.
Objective Data
-
Labs:
Laboratory Results
03/16/24
06:00
WBC Pending
Hgb Pending
Hct Pending
Plt Count Pending
Sodium Pending
Potassium Pending
Chloride Pending
Carbon Dioxide Pending
BUN Pending
Creatinine Pending
Glucose Pending
Calcium Pending
Total Bilirubin Pending
AST Pending
ALT Pending
Alkaline Phosphatase Pending
Vital Signs:
Vital Signs
Temp Pulse Resp BP Pulse Ox
97.7 F 72 19 109/52 97
03/16/24 03:35 03/16/24 03:35 03/16/24 03:35 03/16/24 03:35 03/16/24 03:35
I&O
03/15/24 03/16/24 03/17/24
06:59 06:59 06:59
Intake Total 360 / 360 720 / 720
Balance 360 / 360 720 / 720
Review of Systems
-
History Source: Patient
EENT: Reports Other (See HPI )
Respiratory: Reports No Symptoms
Cardiac: Reports No Symptoms
Abdomen/GI: Reports No Symptoms
Genitourinary: Reports No Symptoms
Musculoskeletal: Reports No Symptoms
Neuro: Reports No Symptoms and Other (See HPI )
Physical Exam
-
General: Well Developed and Obese
HEENT: Normocephalic, Atraumatic and Other (Right eye temporal horse shoe shaped vision loss)
Respiratory: Clear to Auscultation
Cardiac: Regular Rhythm and S1/S2
GI: Soft and Nontender
Musculoskeletal: No Clubbing and No Cyanosis
Neuro: Awake, Alert, Oriented, AO x 3, No Motor Deficits and Nonfocal/Grossly Intact
Psych: Calm
[2024-03-16 08:52] LABS: Hematocrit 45.8 % (39.0-52.0); Hemoglobin 16.2 g/dL (13.0-18.0); Mean Corp Hgb Conc. 35.4 g/dL (33.0-37.0); Mean Corpuscular Hgb 30.9 pg (27.0-31.0); Mean Corpuscular Volume 87.4 fL (80.0-94.0); Mean Platelet Volume 10.1 fL (7.4-10.4); Platelet Count 209 10^3/uL (130-400); Red Blood Cell Count 5.24 10^6/uL (4.70-6.10); Red Cell Dist. Width 12.2 % (11.5-14.5); White Blood Cell Count 5.7 10^3/uL (4.8-10.8)
[2024-03-16 09:34] LABS: ALT (SGPT) 27 U/L (0-50); AST (SGOT) 22 U/L (17-59); Albumin 4.3 g/dl (3.5-5.0); Alkaline Phosphatase 96 U/L (38-126); Blood Urea Nitrogen 22 mg/dl (9-20); Calcium 9.6 mg/dl (8.4-10.2); Carbon Dioxide 27 mmol/L (22-30); Chloride 102 mmol/L (98-107); Estimated Creatinine Clearance 82 ml/min; Glucose 92 mg/dl (70-99); Potassium 4.1 mmol/L (3.5-5.1); Sodium 143 mmol/L (135-145); Total Bilirubin 1.4 mg/dl (0.2-1.3); Total Protein 7.2 g/dl (6.3-8.2); eGFR > 60.00
--- NOTE | 2024-03-16 10:32 | ITS.CL.IMPLP ---
Telephonic Nurse - Implant Loop
Implant Loop
Procedure Report:
Procedure: Insertion of Loop Recorder.�
Date of the procedure: 03/16/2024
Procedure Physician: Georgina Lopez MD [facility]
Indication: Cryptogenic stroke
Description of the procedure:
Patient was brought to the holding area after informed consent was obtained from the patient. The time-out was performed immediately before the procedure.
The left parasternal chest area was prepped and draped in sterile fashion with chlorhexidine prep x 3 times. Lidocaine 1% was injected subcutaneously for local anesthesia. The loop recorder was tunneled and then injected into the subcutaneous
tissue. The tunneling tool was removed leaving the loop recorder in place. The dermis was closed with steristrips and a pressure Tegaderm dressing was placed. There were no immediate complications.
Post procedure, the device was interrogated and showed good detectable P and R waves.
There were no immediate complications.
Device:
LINQII; Model: LNQ22; Serial #:[id number]
R wave amplitude: 0.5 mV
Final Programming:
��������������� Tachycardia Detection: >182 bpm for 16 beats
��������������� Bradycardia Detection: 30 bpm for 12 beats, Asystole for 5 seconds.
��������������� Atrial fibrillation detection: On with > 10 min duration
Conclusion:
Successful insertion of loop recorder.
Recommendation:
Routine post-insert loop care.
[2024-03-16 11:21] VITALS: BP 134/82
[2024-03-16] MEDS: TOPROL XL 25 MG PO (11:26)
[2024-03-16] MEDS: COZAAR 25 MG PO (11:26)
[2024-03-16] MEDS: LOW STRENGTH ASPIRIN 81 MG PO (11:26)
--- NOTE | 2024-03-16 11:48 | W.PN.CD ---
Addendum entered and electronically signed by Valerio Rob MD 03/16/24 16:00:
Patient follows up with [facility] cardiology with Dr. Santana. I called Dr. Santana's office and was called back by covering physicians assistant store manager sales. I reviewed the patient's clinical course and test results also explained the patient will have a loop
monitor that we will need additional follow-up along with follow-up for aortic regurgitation, functionally bicuspid aortic valve and dilated ascending aorta. Their office agreed to see the patient in follow-up for these issues and agreed to follow
the monitor.
Addendum entered and electronically signed by Valerio Rob MD 03/16/24 14:58:
I saw and examined the patient.
The TEAM PSYCHOLOGIST's note was reviewed and I agree with the note.
Patient comfortable in sinus rhythm. STEPHANE today report suggested normal left ventricular function, LVH bicuspid aortic valve with moderate eccentric aortic regurgitation. Dilated aortic root 3.9 cm at sinus of Valsalva and proximal ascending aorta
of 4.3 cm. Measurements were smaller than transthoracic study consideration for CT or MR mentioned on report. Plaque seen in the descending thoracic aorta. No evidence of [id number] shunt by bubble study.
No clear cardiac source.
Patient then had an implantable loop.
-Patient remains on aspirin
-Will have follow-up incision check in our office but long-term follow-up will be with his primary cooker cleaner Dr. Santana.
Original Note:
Today's Communication / Plan
-
post ILR routine care
continue cardiac medications
Impression / Plan
-
Mr. Dao is a 43 yo male with ascending aorta aneurysm, hyperlipidemia, former tobacco, obesity admitted with right sided vision loss. Found to have branch retinal artery occlusion (right). We are consulted to evaluate for cardiac source of
embolus.
Cards: [facility], Dr. Santana
#Branch retinal artery occlusion (right)
-CTA neck: no carotid disease
-brain MRI: no acute findings
-Tele: no A fib
-Hypercoag eval: sent/pending
-s/p STEPHANE today with normal LVEF, no BRYAN thrombus, bicuspid, sclerotic aortic valve without significant stenosis. moderate eccentric aortic regurgitation, dilated aortic root and proximal ascending aorta
-s/p ILR [employer] LINQII implanted this am after negative STEPHANE. will follow up with Dr. Santana in their device clinic
-he wlll remain on ASA 81mg daily for now
# Asc Ao aneurysm (4.7cm) with suspected bicuspid aortic valve on CT
-aortic valve is bicuspid noted on STEPHANE
-new HTN: will use losartan and Toprol XL
# HTN
-change amlodipine to losartan and Toprol given aortic findings
# Lipid management
-mild LAD calcification also noted on CT
-atorvastatin 40mg started
# Abnormal EKG
-IVCD, LVH
Physical Exam
Vital Signs/Labs
Vital Signs
Temp Pulse Resp BP Pulse Ox
97.9 F 66 18 134/82 96
03/16/24 11:21 03/16/24 11:21 03/16/24 11:21 03/16/24 11:21 03/16/24 11:21
03/15/24 03/16/24 03/17/24
06:59 06:59 06:59
Actual Weight 235 lb 4.8 oz
03/16/24 07:55
03/16/24 07:55
PT 13.3 Sec (11.4-14.6) 03/14/24 12:20
INR 1.03 03/14/24 12:20
APTT 30.7 Sec (23.4-35.0) 03/14/24 12:20
Triglycerides 254 mg/dl (10-149) H 03/14/24 12:20
LDL Cholesterol, Calc 116 mg/dl 03/14/24 12:20
VLDL Cholesterol, Calc 50 mg/dl (0-30) H 03/14/24 12:20
HDL Cholesterol 44 mg/dl 03/14/24 12:20
Physical Exam
Constitutional: No acute distress
EENT: Anicteric and Moist mucous membranes
Cardiovascular: Rhythm & rate is regular and Other (mid chest ILR intact)
Respiratory: Respiratory effort normal
GI: Soft, Non tender and Normal bowel sounds
Neuro/Psych: AO x 3
Other: Skin (warm, dry )
Data Reviewed
-
Date of Service: March 16, 2024
Medical Decision Making: Reviewed Test Results
EKG: Tracing Personally Visualized and interpreted
Echo: Report Reviewed by me
Labs: Labs Reviewed by me
Old Records: Reviewed
[2024-03-16 13:45] LABS: Rheumatoid Agglutinin Less Than 10 IU (<10 IU)
[2024-03-16 15:30] VITALS: BP 158/82
[2024-03-16 15:37] VITALS: BP 150/82; PULSE 83; O2SAT 97
--- NOTE | 2024-03-16 15:45 | PTOTSP ---
pt currently demonstrates ability to complete simple ADLs, functional transfers, ambulation with no assistance. pt reports vision loss in right eye, right half and upper quadrants. this vision loss is not impairing pt's functional abilities assessed
during this hospitalization. recommend outpatient follow up with neuro-ophthalmology when appropriate, outpatient OT for driving assessment if needed. no acute OT needs identified at this time, will sign off.
--- NOTE | 2024-03-16 17:14 | CON.NEURO ---
Consultation
Order
Date of Consultation: 03/16/24
Requesting Provider: Nicholas irby MD
Reason for Consult: BRAO
CC: chnage in vision
HPI: This is a 43-year-old ambidexterous man who presented to [facility] on March 14, 2024 for an evaluation of R BRAO, diagnosed by an tennis ball cover cementer after he developed a new horseshoe scotoma involving temporal visual field and
sparing central vision on 03/13/2024. The vision has not improved since the onset, and there is no associated pain.
Mr. Orellana admits to transient left-sided facial numbness during his ER stay, which lasted for less than one hour. The numbness resolved after taking a baby aspirin provided by the nurse. No report of dysarthria, motor weakness headache
ER VS: 160/98, afebrile.
EKG: NSR, QTc Int : 425 ms.
PDMP: none
Labs: LDL 116, 82, HbA1C 5.4, normal ESR/CRP
CTA head/neck -no hemodynamically significant stenoses.
STEPHANE-no shunt
Brain MRI wo otoniel(03/15/2024) lobular T2 hyperintense lesion measuring 10 x 7 mm at the superior aspect of the right orbit above the right superior rectus muscle(small cyst or lymphangioma.)
PMH: AAA, HTN, migraine with aura
PSH: ILR(03/16/2024), right shoulder surgery
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
FH: mother-strokes in her 70s
All:NKDA
ROS:Constitutional: Negative. Negative for chills, fever and unexpected weight change.
HENT: Negative for ear pain, hearing loss, tinnitus and trouble swallowing.
Eyes: Npositive for visual disturbance.
Respiratory: Negative for cough, choking and shortness of breath.
Cardiovascular: Negative for chest pain, palpitations and leg swelling.
Gastrointestinal: Negative for abdominal pain and vomiting.
Endocrine: Negative. Negative for cold intolerance.
Genitourinary: Negative for dysuria, flank pain and urgency.
Musculoskeletal: Negative for back pain, gait problem, neck pain and neck stiffness.
Skin: Negative for rash.
Allergic/Immunologic: Negative. Negative for immunocompromised state.
Neurological: Negative for dizziness, tremors, seizures, speech difficulty, numbness and headaches.
Psychiatric/Behavioral: Negative for behavioral problems, confusion and hallucinations.
General: Well developed. In no acute distress.
Cardio: Regular rate and rhythm without murmur. Extremities are without cyanosis or edema.
Neuro:
Mental Status: Alert, oriented to person, place, and date. Normal attention and recall. Good fund of knowledge. Follows complex requests across the midline. Comprehension, naming, and repetition intact. Immediate and delayed recall 3/3.
Cranial Nerves: . Pupils are equally round and reactive to light. EOMs full. Visual smiley full to confrontation. No ptosis. No nystagmus. V1-V3 intact to light touch and pinprick bilaterally, symmetric. Face symmetric. Normal hearing AU.
The palate elevated well. SCMs and traps 5/5. Tongue midline. No dysarthria.
Motor: Normal bulk and tone. No pronator or arm drift. Strength 5/5 throughout. No clonus.
Reflexes: 2+ throughout the upper extremities and knees. 2/2 in AJs. Plantar responses flexor bilaterally.
Sensory: Normal pinprick, vibration and JPS.
Coordination: No dysmetria or tremor.
Gait: deferred
Assessment and Plan:
I. R BRAO
II. Episodic migraine with aura
III. HTN
-Continue ASA 81 mg QD
-Thrombophilia work up by hematology(can be done asOP
-Brain MRI with otoniel(can be done as OP)
-OP cardiology follow up
-Continue ASA 81mg and Lipitor 40 mg QHS
-No driving
-OP neurology follow up in 2 weeks
I personally reviewed all radiology and labs along with past medical records pertinent to current medical problems. Total time spent in patient care is 60 minutes.
Thank you for allowing us to participate in the care of this patient. We will continue to follow. Please do not hesitate to contact us with any questions or concerns.
Subjective/Objective
Subjective Data
Date of Service: March 16, 2024
Objective Data
Vital Signs
Temp Pulse Resp BP Pulse Ox
36.8 C 85 18 158/82 98
03/16/24 15:30 03/16/24 15:30 03/16/24 15:30 03/16/24 15:30 03/16/24 15:30
Lab Results
03/16/24 07:55
03/16/24 07:55
PT 13.3 Sec (11.4-14.6) 03/14/24 12:20
INR 1.03 03/14/24 12:20
APTT 30.7 Sec (23.4-35.0) 03/14/24 12:20
Sodium 143 mmol/L (135-145) 03/16/24 07:55
Potassium 4.1 mmol/L (3.5-5.1) 03/16/24 07:55
BUN 22 mg/dl (9-20) H 03/16/24 07:55
Glucose 92 mg/dl (70-99) 03/16/24 07:55
Calcium 9.6 mg/dl (8.4-10.2) 03/16/24 07:55
LDL Cholesterol, Calc 116 mg/dl 03/14/24 12:20
Patient Allergies
No Known Allergies Allergy (Verified 03/14/24 11:09)
Medications
-
Active Medications
Generic Name Dose Route Start Last Admin
Trade Name Freq PRN Reason Stop Dose Admin
Acetaminophen 650 mg 03/15/24 16:03
Acetaminophen 325 Mg Tablet PO 04/12/24 16:00
Q4HPRN PRN
mild to moderate pain
Aspirin 81 mg 03/15/24 08:00 03/16/24 11:26
Aspirin 81 Mg Chewable Tablet PO 04/12/24 07:59 81 mg
DAILY KAZ Administration
Atorvastatin Calcium 40 mg 03/14/24 18:05 03/15/24 17:28
Atorvastatin (Lipitor) 40 Mg Tablet PO 04/11/24 18:04 40 mg
QPM KAZ Administration
Bisacodyl 10 mg 03/14/24 18:05
Bisacodyl 10 Mg Rectal Suppository RECTAL 04/11/24 18:04
[id number] PRN
constipation
Losartan Potassium 25 mg 03/16/24 08:00 03/16/24 11:26
Losartan 25 Mg Tablet PO 04/13/24 07:59 25 mg
DAILY KAZ Administration
Metoprolol Succinate 25 mg 03/16/24 08:00 03/16/24 11:26
Metoprolol 25 Mg Extended Release Tablet PO 04/13/24 07:59 25 mg
DAILY KAZ Administration
Polyethylene Glycol 17 grams 03/14/24 18:05
Polyethylene Glycol Powder 17 Grams Packet PO 04/11/24 18:04
DAILYPRN PRN
constipation
Senna/Docusate Sodium 1 tablet 03/14/24 18:05
Docusate W/Senna (Lissy-Colace) Tablet PO 04/11/24 18:04
BIDPRN PRN
constipation
Sodium Chloride 0 flush 03/14/24 20:00
Sodium Chloride 0.9% (Flush) Syringe IV 04/11/24 19:59
PER PROTOCOL KAZ
Home Medications
�Medication �Instructions �Recorded
amlodipine 5 mg tablet (Norvasc) 5 mg PO DAILY #30 tabs 06/10/22
Vital Signs and Labs
-
Vital Signs and Labs:
Vital Signs
Temp Pulse Resp BP Pulse Ox
36.8 C 85 18 158/82 98
03/16/24 15:30 03/16/24 15:30 03/16/24 15:30 03/16/24 15:30 03/16/24 15:30
Lab Results
03/16/24 07:55
03/16/24 07:55
PT 13.3 Sec (11.4-14.6) 03/14/24 12:20
INR 1.03 03/14/24 12:20
APTT 30.7 Sec (23.4-35.0) 03/14/24 12:20
Sodium 143 mmol/L (135-145) 03/16/24 07:55
Potassium 4.1 mmol/L (3.5-5.1) 03/16/24 07:55
BUN 22 mg/dl (9-20) H 03/16/24 07:55
Glucose 92 mg/dl (70-99) 03/16/24 07:55
Calcium 9.6 mg/dl (8.4-10.2) 03/16/24 07:55
LDL Cholesterol, Calc 116 mg/dl 03/14/24 12:20
Medications
-
Medications:
Generic Name Dose Route Start Last Admin
Trade Name Freq PRN Reason Stop Dose Admin
Acetaminophen 650 mg 03/15/24 16:03
Acetaminophen 325 Mg Tablet PO 04/12/24 16:00
Q4HPRN PRN
mild to moderate pain
Aspirin 81 mg 03/15/24 08:00 03/16/24 11:26
Aspirin 81 Mg Chewable Tablet PO 04/12/24 07:59 81 mg
DAILY KAZ Administration
Atorvastatin Calcium 40 mg 03/14/24 18:05 03/16/24 17:17
Atorvastatin (Lipitor) 40 Mg Tablet PO 04/11/24 18:04 40 mg
QPM KAZ Administration
Bisacodyl 10 mg 03/14/24 18:05
Bisacodyl 10 Mg Rectal Suppository RECTAL 04/11/24 18:04
[id number] PRN
constipation
Losartan Potassium 25 mg 03/16/24 08:00 03/16/24 11:26
Losartan 25 Mg Tablet PO 04/13/24 07:59 25 mg
DAILY KAZ Administration
Metoprolol Succinate 25 mg 03/16/24 08:00 03/16/24 11:26
Metoprolol 25 Mg Extended Release Tablet PO 04/13/24 07:59 25 mg
DAILY KAZ Administration
Polyethylene Glycol 17 grams 03/14/24 18:05
Polyethylene Glycol Powder 17 Grams Packet PO 04/11/24 18:04
DAILYPRN PRN
constipation
Senna/Docusate Sodium 1 tablet 03/14/24 18:05
Docusate W/Senna (Lissy-Colace) Tablet PO 04/11/24 18:04
BIDPRN PRN
constipation
Sodium Chloride 0 flush 03/14/24 20:00
Sodium Chloride 0.9% (Flush) Syringe IV 04/11/24 19:59
PER PROTOCOL KAZ
Home Medications
-
Home Medications
amlodipine 5 mg tablet (Norvasc) 5 mg PO DAILY #30 tabs 06/10/22
[2024-03-16] MEDS: LIPITOR 40 MG PO (17:17)
--- NOTE | 2024-03-16 18:11 | W.DCSUMMARY ---
Discharge Summary
Discharge Data
Date of Admission: 03/14/24
Date of Discharge: 03/16/24
-
Pending Results: No
Hospital Course
Discharging Physician : Nicholas Arredondo MD
Disposition : Home
Primary care physician : Carlo Hines MD
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
Chronic Discharge diagnosis : Aortic aneurysm and ocular migraine
Hospital Course : The patient is a 43 year old male with a PMH of aortic aneurysm and ocular migraine presented to ER 3 days ago on 03/13 complaining from sudden loose of her right vision partially. The case was discussed with ophthalmology at
that time by ER physician and He was obtained Ct head, CT chest/ neck angio studies. Head CT and CT Neck Angio results were unremarkable and CT Chest Angio showed: Dilation of the ascending aorta and Mild calcification of the LAD. He was
discharged on 03/13 afternoon from ER. The patient presented to ER again on 03/15 after he was seen by his eye physician. He was found having Branch Retinal Artery Occlusion and recommended further studies. Due having numbness on his left side
of the face, brain MRI was ordered which showed: No acute intracranial abnormality. Additionally, cardiology consulted for a possible cardioembolic event. Neurology was also consulted the patient. Cardiology started the patient on losartan, aspirin,
atorvastatin and metoprolol and cardiology recommended to discontinue amlodipine. STEPHANE was done with bubble study and no left atrial appendage thrombus was found and interatrial septum was found intact. Telemetry did nor show any arrhythmia and
the patient was placed LINQ device. The patient was recommended to visit Neurology, Hematology and Cardiology after discharge.
Important imaging findings :
STEPHANE: 03/16/24:
CONCLUSIONS
Normal left ventricular size and systolic function with normal regional wall
motion at rest
Mild to moderate left ventricular hypertrophy with mild asymmetry involving the
subaortic septum, 1.4 cm
Normal RV size and systolic function
Normal atrial dimensions
No left atrial appendage thrombus
Interatrial septum is intact by color-flow Doppler and agitated saline, 'bubble
study'
Bicuspid, sclerotic aortic valve without significant stenosis. Moderate
eccentric aortic regurgitation
Thickened mitral valve leaflets without stenosis. Trace mitral regurgitation
Trace tricuspid regurgitation
No evidence of pulmonary hypertension
Dilated aortic root and proximal ascending aorta.
Plaque noted in the descending aorta
Given discrepancies in measurements obtained by transthoracic/transesophageal
echocardiogram, consider CT/MR imaging of the aorta
03/15 Brain MRI
IMPRESSION:
No acute intracranial abnormality.
CT Chest Angio W/wo Iv ContrasT ON 03/13:
IMPRESSION: There is no CT angiographic evidence for thoracic aortic dissection.
Dilation of the ascending aorta, short axis diameter 4.7 cm at the level of the right main pulmonary artery. Continued follow-up is recommended.
There is mild to moderate calcification of the aortic valve. Combined with dilation of the aorta, findings raise concern for bicuspid aortic valve. On reconstructions, valvular calcification is mainly at the junction of the left and right coronary
leaflets, which raises concern for Aries type I bicuspid valve. If not previously evaluated, consider consultation with cardiology.
Mild calcification of the LAD. Please correlate with symptoms of and risk factors for coronary artery disease, with further workup as clinically appropriate.
The lungs appear clear.
Fatty infiltration of the visualized liver.
CT Neck Angio W/wo Iv Contrast 03/13
IMPRESSION: No significant narrowing involving the common carotid, carotid bulbs, or proximal internal carotid arteries bilaterally.
Dominant right vertebral artery with small caliber left vertebral artery. The left vertebral artery terminates as the posterior inferior cerebellar artery.
No evidence for dissection.
See above narrative for detailed findings.
Head CT 03/13
IMPRESSION:
Negative unenhanced CT of the head.
Procedure findings :
LINQII; Model: LNQ22 Placement
Conclusion: Successful insertion of loop recorder.
Discharge Plan
-
Patient Disposition: Home (Routine Discharge)
Discharge Diagnosis/Procedures: Diagnosis: Right retinal artery branch occlusion, Had an intervention for Linq device implant
Condition: Good
Diet: Low Cholesterol
Activity: As tolerated
Driving Restrictions: No driving
Blood Work: BMP 4-5 days
Others Tests: MRI brain with contrast .
Activity Restrictions/Additional Instructions:
you need to be cleared by neuro/Ophthalmology to be cleared for driving. Thrombophilia work up by hematology- see a compression molding machine operator
Stand Alone Forms: DC Inst - Implanted Device
Referrals:
[facility] [Provider Group] - 03/30/24 11:20 am (Post linq device incision check appointment with DOLLY Pedroza)
Carlo Hines MD [Family Provider] -
Estephania Malone MD [Active] -
Alina Barbosa MD [Active] - in two weeks
Miguel Santana MD [Non-Admitting Privileges] - in three to four weeks (Cardiology followup appointment)
Additional Discharge Medication Instructions: stop Norvasc
Prescriptions:
New
losartan 25 mg Tablet
25 mg PO DAILY Qty: 30 0RF
aspirin 81 mg Tablet,Chewable
81 mg PO DAILY Qty: 30 0RF
metoprolol succinate 25 mg Tablet Extended Release 24 Hr
25 mg PO DAILY Qty: 30 0RF
atorvastatin 40 mg Tablet
40 mg PO DAILY Qty: 30 0RF
Discontinued
amlodipine [Norvasc] 5 mg tablet
5 mg PO DAILY Qty: 30 0RF
Discharge Orders:
Discharge Patient (As Directed); Ordered 03/16/24
Ordered By: Imani Colunga
Discharge Date and Time
Print Language: ARMENIAN
[2024-03-17 01:10] LABS: ANA, IgG Reflex to HEp-2 None Detected (None Detected)
[2024-03-17 02:01] LABS: Beta-2-Glycoprotein I Ab. IgA <10 SAU (<=20); Beta-2-Glycoprotein I Ab. IgG <10 SGU (<=20); Beta-2-Glycoprotein I Ab. IgM <10 SMU (<=20)
[2024-03-17 14:12] LABS: Cardiolipin IgA Antibody <10 APL (<=11); Cardiolipin IgM Antibody <10 MPL (<=12); Cardiolipin Igg Antibody <10 GPL (<=14)
[2024-03-17 18:28] LABS: FTA-ABS/T. pallidum, IgG Serum Non Reactive (Non Reactive)
== END 2024-03-16 18:59 | disposition home or self-care (01) | DRG 983 ==
LOC: 4 EAST ACU 16:00
PROVIDERS: Internal Medicine Cardiovascular Disease; Student in an Organized Health Care Education/Training Program; ADMITTING PHYSICIAN Hospitalist; ATTENDING PHYSICIAN Hospitalist; CONSULT PHYSICIAN Internal Medicine; CONSULT PHYSICIAN Psychiatry & Neurology Neurology; EMERGENCY PHYSICIAN Emergency Medicine; FAMILY PHYSICIAN Family Medicine
PROC: B24BZZ4 Ultrasonography of Heart with Aorta, Transesophageal (ICD-10-PCS; 2024-03-16)
PROC: 0JH632Z Insertion of Monitoring Device into Chest Subcutaneous Tissue and Fascia, Percutaneous Approach (ICD-10-PCS; 2024-03-16)
DX: H34.231 Retinal artery branch occlusion, right eye (principal); Z87.891 Personal history of nicotine dependence; I10 Essential (primary) hypertension; I71.20 Thoracic aortic aneurysm, without rupture, unspecified; Z79.82 Long term (current) use of aspirin; I71.21 Aneurysm of the ascending aorta, without rupture; E78.00 Pure hypercholesterolemia, unspecified
CPT/HCPCS: 33285; 70551; 80048; 80053; 80061; 83036; 85025; 85027; 85610; 85652; 85730; 86038; 86140; 86146; 86147; 86148; 86430; 86780; 93312; 93320; 93325; 97165; 99284; C1764